=== PATIENT | male | born 1945 | race Caucasian/White ===

== ENCOUNTER → 2018-02-22 13:42 | Outpatient (CLI) | payer MEDICARE, SELFPAY ==
[2018-02-22 15:27] LABS: Absolute Lymphocyte Count 1.98 X10^3/ul (0.83-4.51); Absolute Neutrophil Count 1.6 X10^3/uL (2.0-7.7); Basophil# 0.06 X10^3/uL; Basophil% 1.4 % (0-1); Eosinophil# 0.11 X10^3/uL; Eosinophils% 2.5 % (0-5); Hematocrit 40.2 % (40-54); Hemoglobin 14.1 g/dl (13.0-16.5); Lymphocyte # 1.98 X10^3/ul (4.0); Lymphocyte % 44.6 % (19-41); Mean Corp Hgb Conc 35.1 g/gl (32-36); Mean Corpuscular Hgb 31.7 pg (27.0-32.0); Mean Corpuscular Volume 90.3 fL (80-94); Mean Platelet Vol. 9.8 fl (6.2-12.0); Monocyte# 0.68 X10^3/uL; Monocyte% 15.3 % (0-10); Neutrophil # 1.61 X10^3/uL (2.7-7.7); Neutrophil % 36.2 % (47-70); Platelet Count 275 K/mm3 (150-450); RBC Distribution Width CV 13.7 % (11.6-14.6); RBC Distribution Width SD 44.6 fl (35.1-43.9); Red Blood Count 4.45 M/mm3 (4.6-6.2); White Blood Count 4.4 K/mm3 (4.4-11.0)
[2018-02-22 15:29] LABS: POSITIVE COUNT NO; POSITIVE DIFFERENTIAL NO; POSITIVE MORPHOLOGY NO
[2018-02-22 15:37] LABS: Hemoglobin A1c 5.7 % (4.2-6.3)
[2018-02-22 15:54] LABS: ALB/GLOB Ratio 1.1 RATIO (0.9-2.4); AST(SGOT) 28 U/L (15-37); Alanine Aminotransfer ALT/SGPT 31 U/L (16-61); Albumin, Serum 3.7 g/dL (3.2-5.0); Alkaline Phosphatase 64 U/L (45-117); Anion Gap 8 (5-15); BUN 22 mg/dL (7-18); BUN/Creat Ratio 23.5 RATIO (10-20); Calcium,Total 8.6 mg/dL (8.5-10.1); Chloride 104 mmol/L (98-107); Cholesterol 256 mg/dL (200); Creatinine, Serum 0.94 mg/dL (0.70-1.30); EST Glomerular Filtration Rate 85 mL/min (>60); Est Glom Filt Rate - Afr Amer 102 mL/min (>60); Globulin 3.4 g/dL (2.2-4.2); Glucose 82 mg/dL (74-106); High Density Lipoprotein 41 mg/dL; PSA,Total - Annual Screen 0.76 ng/mL (0.00-4.00); Potassium 4.3 mmol/L (3.5-5.1); Protein, Total 7.1 g/dL (6.4-8.2); Sodium Level 141 mmol/L (136-145); Thyroid Stim Hormone (TSH) 0.88 uIU/mL (0.358-3.74); Triglycerides 481 mg/dL
[2018-02-23 09:39] LABS: Vitamin B12 497 pg/mL (211-911)
== END ==
PROVIDERS: Family Provider Family Medicine; PCP Family Medicine; Visit Provider Family Medicine
DX: Z00.01 Encounter for general adult medical examination with abnormal findings (principal); E78.5 Hyperlipidemia, unspecified; R73.01 Impaired fasting glucose; R53.83 Other fatigue; R41.3 Other amnesia; Z12.5 Encounter for screening for malignant neoplasm of prostate; Z72.0 Tobacco use
CPT/HCPCS: 36415; 80053; 80061; 82607; 83036; 84153; 84443; 85025; G0103

== ENCOUNTER 2018-04-17 11:00 | Inpatient (IN) | payer MEDICARE, SELFPAY ==
[2018-04-17 11:01] VITALS: BP 121/60; PULSE 117; RESP 18; TEMP 38.2; O2SAT 92; BMI 26.9
[2018-04-17 11:28] VITALS: BP 126/85; PULSE 115; RESP 29; O2SAT 93
[2018-04-17 11:39] LABS: Absolute Lymphocyte Count 0.42 X10^3/ul (0.83-4.51); Absolute Neutrophil Count 7.8 X10^3/uL (2.0-7.7); Basophil# 0.02 X10^3/uL; Basophil% 0.2 % (0-1); Hematocrit 41.2 % (40-54); Hemoglobin 14.8 g/dl (13.0-16.5); Lymphocyte # 0.42 X10^3/ul (4.0); Lymphocyte % 4.8 % (19-41); Mean Corp Hgb Conc 35.9 g/gl (32-36); Mean Corpuscular Hgb 32.4 pg (27.0-32.0); Mean Corpuscular Volume 90.2 fL (80-94); Mean Platelet Vol. 9.3 fl (6.2-12.0); Monocyte# 0.51 X10^3/uL; Monocyte% 5.8 % (0-10); Neutrophil # 7.76 X10^3/uL (2.7-7.7); Neutrophil % 89.1 % (47-70); Platelet Count 205 K/mm3 (150-450); RBC Distribution Width CV 13.8 % (11.6-14.6); RBC Distribution Width SD 45.3 fl (35.1-43.9); Red Blood Count 4.57 M/mm3 (4.6-6.2); White Blood Count 8.7 K/mm3 (4.4-11.0)
[2018-04-17 11:40] LABS: Differential Indicated SCAN CRITERIA MET; POSITIVE COUNT NO; POSITIVE DIFFERENTIAL YES; POSITIVE MORPHOLOGY NO
[2018-04-17 11:41] LABS: International Normalized Ratio 1.2; Prothrombin Time (Protime)PT. 14.9 SECONDS (11.7-14.9)
[2018-04-17 11:42] LABS: Partial Thromboplast Time 37.1 Seconds (24.1-36.2)
[2018-04-17 11:47] LABS: ALB/GLOB Ratio 0.9 RATIO (0.9-2.4); AST(SGOT) 22 U/L (15-37); Alanine Aminotransfer ALT/SGPT 27 U/L (16-61); Albumin, Serum 3.5 g/dL (3.2-5.0); Alkaline Phosphatase 76 U/L (45-117); Anion Gap 10 (5-15); BUN 18 mg/dL (7-18); BUN/Creat Ratio 15.4 RATIO (10-20); Calcium,Total 8.6 mg/dL (8.5-10.1); Chloride 102 mmol/L (98-107); Creatinine, Serum 1.17 mg/dL (0.70-1.30); EST Glomerular Filtration Rate 65 mL/min (>60); Est Glom Filt Rate - Afr Amer 79 mL/min (>60); Glucose 136 mg/dL (74-106); Potassium 3.5 mmol/L (3.5-5.1); Protein, Total 7.5 g/dL (6.4-8.2); Sodium Level 135 mmol/L (136-145)
[2018-04-17] MEDS: Acetaminophen 500 MG Tablet 1000 MG PO (11:47)
[2018-04-17] MEDS: 0.9% Normal Saline 1,000 ML 250 ML IV (11:48)
[2018-04-17 11:55] LABS: Mucous, Urine 0 SEEN /hpf (<or=2+); Red Blood Cells-Urine 0 SEEN /hpf (0-5)
[2018-04-17 11:57] LABS: Color, Urine Yellow (Yellow); Glucose, Dipstick Normal (Normal); Ketone-Dipstick 5 mg/dl (Negative); Leukocyte Esterase-Dipstick 100 /ul (Negative); Nitrite-Dipstick Positive (Negative); Occult Blood-Urine 250 /ul (Negative); Protein-Dipstick 100 mg/dl (Negative); Urine Bilirubin Dipstick Negative (Negative); Urine Clarity Clear (Clear); Urine Urobilinogen Normal (Normal)
[2018-04-17 11:57] LABS: Differential Comment SCANNED
--- NOTE | 2018-04-17 11:58 | ED.VISSUMM ---
- ER Visit Summary Date of Service: 04/17/18 Chief Complaint: Fever, confusion History of Present Illness: The patient is a 72 M who presents with fever, chills, and confusion that began yesterday and has been getting progressively worse. states the patient has been confused throughout the night. She states that he was walking around the house and was confused as to where he was at. states the patient was having subjective fevers and chills all day yesterday. Patient admits to some pain in his chest with coughing. Patient denies any sputum production. Patient does admit to some shortness of breath however. Patient denies any nausea or vomiting. Patient admits to some urinary frequency but states that he only urinates small amounts. Physical Examination: Vital signs are stable. Patient does have a temperature of 100.8. Patient is tachycardic at 117. Pulse oximeter is 92% on room air. Oral mucosa is pink and moist. Neck is supple. Trachea is midline. There is no JVD noted. Patient is awake, alert, and oriented to person and place. Cranial nerves II through XII are intact. There are no focal motor or sensory deficits noted. Heart was regular and tachycardic. Lungs are clear and equal bilateral. There is adequate respiratory effort noted. Abdomen is soft. Bowel sounds are normal. There is no tenderness noted. There is no rebound or guarding noted. The remaining physical exam is within normal limits. Test Results: Urinalysis showed evidence of a urinary tract infection. CBC and metabolic profile were within normal limits. CT scan of the brain was obtained and did not show any acute intracranial abnormality. EKG showed sinus tachycardia with a rate of 115. There are nonspecific ST-T wave changes noted. There are no prior EKGs available for comparison. Emergency Department Course and Treatment: Patient was started on Zosyn here. Case was discussed with Dr. Tenorio. He will admit the patient to his service. Disposition: Admit to hospital Impression: UTI, sepsis This note was generated with [employer] dictation software. It may contain incorrect words, spelling, and punctuation that were not noted in review of the chart prior to signing ED Disposition - Plan for ED Patient: Disposition: Acute Care Hospital [facility] Chief Complaint: Confusion Diagnosis: Urinary tract infection, Sepsis Referrals: Sonny Cueva DO [Primary Care Provider] -
[2018-04-17 12:05] LABS: White Blood Cells 25-50 SEEN /hpf (0-5)
[2018-04-17 12:05] LABS: Lactic Acid 1.6 mmol/L (0.4-2.0)
[2018-04-17 12:06] LABS: Bacteria 2+ /hpf (None Seen); Squamous Epithelial Cells - UA 0-5 SEEN /hpf (0-5)
[2018-04-17 13:52] VITALS: BP 114/79; PULSE 84; RESP 16; O2SAT 93
[2018-04-17 14:40] VITALS: PULSE 82; RESP 18; O2SAT 95
--- NOTE | 2018-04-17 15:13 | PCM.HP.STD ---
Problem List (1) Metabolic encephalopathy Status: Acute (2) Urinary tract infection Status: Acute (3) Sepsis Status: Acute History of Present Illness Date of Admission: 04/17/18 Chief Complaint: confusion The patient is a 72 year old M resents with confusion. Patient noted that the patient was confused last night were he knew she was but did not work. They were in their house which they have lived in for some time. Patient had a similar episode when he had an ear infection years past. Patient presents to the emergency room and was found to have a urinary tract infection urinalysis. Other workup was unremarkable. Patient was ordered Zosyn. Patient denies ever having had a urinary tract infection before. Patient states that he did have some dysuria that began yesterday. He denies any nocturia or incomplete voiding. [] Past Medical History Medical History: Medical History (Last Updated 04/17/18 @ 15:15 by Colt Tenorio DO) Amputated toe of left foot Z89.422 1st toe Allergies No Known Allergies Allergy (Verified 12/05/15 15:03) Home Medications: Ambulatory Orders Medication Instructions Recorded NK [NK] 04/17/18 Surgical History: - Psychiatric History: No pertinent psych hx Lives: Spouse/ Significant Other Smoking Status: Current some day smoker - Occasional Tobacco Use: Cigars, Pipe Alcohol: Occasional Drugs: None - *Family History Paternal History Items: Stroke Review of Systems Constitutional: Reports: Chills, Fever. Denies: Anorexia Eyes: Denies: Blurred vision, Double vision HEENT: Reports: Nasal Congestion. Denies: Head Aches, Sinus Congestion, Sinus Drainage Cardiovascular: Denies: Chest Pain, Palpitations Respiratory: Denies: Cough, Shortness of breath at rest, Sputum production Gastrointestinal: Denies: Abdominal Pain, Nausea, Vomiting Genitourinary: Reports: Dysuria. Denies: Frequency, Incontinence, Nocturia Musculoskeletal: Denies: Joint Pain, Joint Tenderness Skin: Denies: Rash, Wounds Neurological: Reports: Confusion. Denies: Focal weakness, Numbness, Tingling Psychiatric: Denies: Anxiety, Depression Endocrine: Denies: Change in Body Habitus Hematologic/ Lymphatic: Denies: Easy Bruising, Easy Bleeding, Hx of blood clot Comment: All review of systems are negative except as mentioned in the history of present illness and the other review of systems. VTE Information - Inpt Only VTE Present on Admission: No VTE Mechan Device Prophylaxis: None VTE Pharm Prophylaxis ordered?: Yes Patient Problems: Active and Suspected Problems (Last Updated 04/17/18 @ 15:15 by Colt Tenorio DO) Urinary tract infection (Acute) Sepsis (Acute) Metabolic encephalopathy (Acute) - Physical Exam General: Alert, Oriented x3, Cooperative, No apparent distress, Well developed, Well nourished HEENT: Atraumatic, PERRLA, EOMI, Normocephalic Oral: Moist Mucosa, No Gingival or Mucosal Lesions/ Ulcerations Neck: No Nodes, Thyroid Normal Size and Texture Lungs: Clear to auscultation, Normal air movement, No rhonchi, No wheeze Cardiovascular: Regular rate, Regular Rhythm, Normal S1, Normal S2, No murmurs Abdomen: Bowel Sounds Present, Soft, Non Tender, Non-Distended, No Hepato-splenomegaly, - - Bladder not palpable Extremities: No edema, No Calf Tenderness Skin: No rashes, No breakdown Musculoskeletal: No Tenderness to Palpation of Joints or Extremities, No Muscle Wasting Neurological: Cranial nerves II-XII grossly intact, Neuro grossly intact, Motor Exam 5/5 strength throughout Psych/Mental Status: Normal Affect, Appropriate Vital Signs Temp Pulse Resp BP Pulse Ox 38.2 C H 82 18 114/79 95 04/17/18 11:01 04/17/18 14:40 04/17/18 14:40 04/17/18 13:52 04/17/18 14:40 Oxygen Flow Rate (L/min) 2 Oxygen Delivery Method Nasal Cannula Weight: 73.482 kg Body Mass Index (BMI) 26.9 Laboratory Tests Past 24 Hrs 04/17/18 04/17/18 04/17/18 11:23 11:23 11:23 WBC 8.7 RBC 4.57 L Hgb 14.8 Hct 41.2 MCV 90.2 MCH 32.4 H MCHC 35.9 RDW 13.8 RDW Differential 45.3 H Plt Count 205 MPV 9.3 Immature Gran % (Auto) 0.100 Neut % (Auto) 89.1 H Lymph % (Auto) 4.8 L [place] % (Auto) 5.8 Eos % (Auto) 0.0 Baso % (Auto) 0.2 Absolute Neuts (auto) 7.8 H Absolute Lymphs (auto) 0.42 L Total Counted Not Reportable Differential Comment SCANNED PT 14.9 INR 1.2 APTT 37.1 H Sodium 135 L Potassium 3.5 Chloride 102 Carbon Dioxide 23.0 Anion Gap 10 BUN 18 Creatinine 1.17 Estim Creat Clear Calc 51.10 Est GFR (MDRD) Af Amer 79 Est GFR (MDRD) Non-Af 65 BUN/Creatinine Ratio 15.4 Glucose 136 H Lactic Acid Calcium 8.6 Total Bilirubin 0.80 AST 22 ALT 27 Alkaline Phosphatase 76 Total Protein 7.5 Albumin 3.5 Globulin 4.0 Albumin/Globulin Ratio 0.9 Urine Color Urine Clarity Urine pH Ur Specific [place] Urine Protein Urine Glucose (UA) Urine Ketones Urine Occult Blood Urine Nitrite Urine Bilirubin Urine Urobilinogen Ur Leukocyte Esterase Urine RBC Urine WBC Ur Squamous Epith Cells Urine Bacteria Urine Mucus 04/17/18 04/17/18 11:23 11:50 WBC RBC Hgb Hct MCV MCH MCHC RDW RDW Differential Plt Count MPV Immature Gran % (Auto) Neut % (Auto) Lymph % (Auto) [place] % (Auto) Eos % (Auto) Baso % (Auto) Absolute Neuts (auto) Absolute Lymphs (auto) Total Counted Differential Comment PT INR APTT Sodium Potassium Chloride Carbon Dioxide Anion Gap BUN Creatinine Estim Creat Clear Calc Est GFR (MDRD) Af Amer Est GFR (MDRD) Non-Af BUN/Creatinine Ratio Glucose Lactic Acid 1.6 Calcium Total Bilirubin AST ALT Alkaline Phosphatase Total Protein Albumin Globulin Albumin/Globulin Ratio Urine Color Yellow Urine Clarity Clear Urine pH 5.0 Ur Specific [place] 1.020 Urine Protein 100 H Urine Glucose (UA) Normal Urine Ketones 5 H Urine Occult Blood 250 H Urine Nitrite Positive H Urine Bilirubin Negative Urine Urobilinogen Normal Ur Leukocyte Esterase 100 H Urine RBC 0 SEEN Urine WBC 25-50 SEEN Ur Squamous Epith Cells 0-5 SEEN Urine Bacteria 2+ Urine Mucus 0 SEEN EKG reviewed and showed normal sinus rhythm with no acute changes. Clinical Impression(s) from Imaging Studies Chest X-Ray 04/17/18 11:15 IMPRESSION: No acute findings Electronically Signed: Alok Lott DO at 11:51 EDT Tel , Service support , Brain CT 04/17/18 12:16 IMPRESSION: Chronic involutional changes of the brain. Electronically Signed: Alok Lott DO at 14:16 EDT Tel , Service support , Assessment/Plan All Active Problems (Last Updated 04/17/18 @ 15:15 by Colt Tenorio DO) Urinary tract infection (Acute) Sepsis (Acute) Metabolic encephalopathy (Acute) 1. Sepsis Present on admission Secondary to UTI Supportive management 2. UTI Patient denies every having had a urinary tract infection before Given the patient's lack of previous urinary tract infections I feel that ciprofloxacin would be appropriate at this time as concern for multidrug-resistant organisms is low Urine culture drawn. However the patient is looking very well on the I feel the patient could be discharged to complete a course of ciprofloxacin without waiting for the final culture results 3. Metabolic encephalopathy Secondary to sepsis and UTI Patient is normally high functioning at baseline and only alert and oriented ?3 I suspect this patient when he gets sick just gets profoundly ill that likely altered his sensorium temporarily. 4. DVT prophylaxis with Lovenox Case discussed with the patient's at bedside Code Visit Inpatient E&M: 16006 Init Hosp L3
[2018-04-17 15:54] VITALS: BMI 27.2
[2018-04-17 16:04] VITALS: BP 138/82; PULSE 77; RESP 20; TEMP 37.4; O2SAT 96
[2018-04-17] MEDS: Acetaminophen 325 MG Tablet 650 MG PO ×2 (16:14→22:30)
[2018-04-17] MEDS: 0.9% Normal Saline 1,000 ML 150 ML IV (16:16)
[2018-04-17 21:34] VITALS: BP 109/68; PULSE 79; RESP 18; TEMP 37.2; O2SAT 93
[2018-04-17] MEDS: Ciprofloxacin 400 MG/200 ML BAG 200 MG IV (21:44)
[2018-04-18 03:44] VITALS: BP 106/71; PULSE 73; RESP 18; TEMP 36.7; O2SAT 96
[2018-04-18] MEDS: Acetaminophen 325 MG Tablet 650 MG PO ×2 (04:45→15:53)
[2018-04-18 06:39] LABS: Absolute Neutrophil Count 6.2 X10^3/uL (2.0-7.7); Basophil# 0.01 X10^3/uL; Basophil% 0.1 % (0-1); Eosinophil# 0.06 X10^3/uL; Eosinophils% 0.8 % (0-5); Hematocrit 37.8 % (40-54); Hemoglobin 12.7 g/dl (13.0-16.5); Lymphocyte % 10.1 % (19-41); Mean Corp Hgb Conc 33.6 g/gl (32-36); Mean Corpuscular Hgb 30.8 pg (27.0-32.0); Mean Corpuscular Volume 91.5 fL (80-94); Mean Platelet Vol. 9.6 fl (6.2-12.0); Monocyte# 0.83 X10^3/uL; Monocyte% 10.5 % (0-10); Neutrophil # 6.23 X10^3/uL (2.7-7.7); Neutrophil % 78.4 % (47-70); Platelet Count 169 K/mm3 (150-450); RBC Distribution Width SD 47.3 fl (35.1-43.9); Red Blood Count 4.13 M/mm3 (4.6-6.2); White Blood Count 7.9 K/mm3 (4.4-11.0)
[2018-04-18 06:40] LABS: POSITIVE COUNT NO; POSITIVE DIFFERENTIAL NO; POSITIVE MORPHOLOGY NO
[2018-04-18 06:56] LABS: Anion Gap 8 (5-15); BUN 16 mg/dL (7-18); BUN/Creat Ratio 16.1 RATIO (10-20); Calcium,Total 8.1 mg/dL (8.5-10.1); Chloride 108 mmol/L (98-107); Creatinine, Serum 0.99 mg/dL (0.70-1.30); EST Glomerular Filtration Rate 79 mL/min (>60); Est Glom Filt Rate - Afr Amer 96 mL/min (>60); Estimated Creatinine Clearance 62.65 ml/min; Glucose 111 mg/dL (74-106); Potassium 3.6 mmol/L (3.5-5.1); Sodium Level 140 mmol/L (136-145)
[2018-04-18 09:30] VITALS: BP 104/60; PULSE 65; RESP 16; TEMP 36.9; O2SAT 99
[2018-04-18] MEDS: 0.9% NaCl Peripheral Flush Adult/Peds IV (09:38)
[2018-04-18] MEDS: Ciprofloxacin 400 MG/200 ML BAG 200 MG IV ×2 (09:38→21:24)
[2018-04-18] MEDS: Enoxaparin 40 MG/0.4 ML Syringe SC (09:43)
--- NOTE | 2018-04-18 10:25 | PCM.PN.HOSP ---
Patient Problems: Active and Suspected Problems (Last Updated 04/17/18 @ 15:15 by Colt Tenorio DO) Urinary tract infection (Acute) Sepsis (Acute) Metabolic encephalopathy (Acute) Subjective: Patient seen and examined. He was admitted on 04/17/2018 with a complaint of altered mental status. He was found to have a UTI. Urinalysis in the ED. He was admitted and is being managed for UTI and is on IV Zosyn. Patient seen and examined. He had no complaints and felt well. Temperature settled overnight and was in the 90s Fahrenheit. He denied any fever or chills, any cough or chest pain, shortness of breath, any dysuria, any abdominal pain, any diarrhea vomiting. Review of systems otherwise negative. Labs and vitals reviewed. Patient is concerned about going home today as he does not want to be a burden to his . He says he was able to ambulate very well while she was at home on account of his sickness and confusion. He was to get much better before he goes on. 12 point Review of systems otherwise negative. Labs and vitals reviewed. Vitals/I&O's: Vital Signs Temp Pulse Resp BP Pulse Ox 98.1 F 73 18 106/71 96 04/18/18 03:44 04/18/18 03:44 04/18/18 03:44 04/18/18 03:44 04/18/18 03:44 Oxygen Delivery Method Room Air Weight: 168 lb 10.458 oz Body Mass Index (BMI) 27.2 Intake and Output for Last 24 Hours 04/16/18 04/17/18 04/18/18 23:59 23:59 23:59 Intake Total 311 / 311 1415 / 1415 Output Total 925 / 925 Balance 311 / 311 490 / 490 General: Alert, Oriented x3, Cooperative, No apparent distress HEENT: Atraumatic, PERRLA, EOMI, Normocephalic Oral: Moist Mucosa Neck: Supple, No JVD, Negative Carotid Bruits Lungs: Clear to auscultation, Normal air movement, No rhonchi, No wheeze, No rales Cardiovascular: Regular rate, Regular Rhythm, Normal S1, Normal S2, No murmurs Abdomen: Bowel Sounds Present, Soft, Non Tender, Non-Distended, No Hepato-splenomegaly Extremities: No clubbing, No cyanosis, No edema, Capillary Refill Less than 3 Seconds Skin: No rashes, No breakdown Musculoskeletal: No Tenderness to Palpation of Joints or Extremities Lymphatic: No Cervical, Supraclavicular, or Inguinal Adenopathy Neurological: Cranial nerves II-XII grossly intact, Motor Exam 5/5 strength throughout Psych/Mental Status: Normal Affect, Appropriate, Alert and oriented to time, place, person, mood and affect Laboratory Results 04/18/18 05:19: WBC 7.9, RBC 4.13 L, Hgb 12.7 L, Hct 37.8 L, MCV 91.5, MCH 30.8, MCHC 33.6, RDW 14.0, RDW Differential 47.3 H, Plt Count 169, MPV 9.6, Immature Gran % (Auto) 0.100, Neut % (Auto) 78.4 H, Lymph % (Auto) 10.1 L, [place] % (Auto) 10.5 H, Eos % (Auto) 0.8, Baso % (Auto) 0.1, Absolute Neuts (auto) 6.2, Absolute Lymphs (auto) 0.80 L, Total Counted Not Reportable 04/18/18 05:19: Sodium 140, Potassium 3.6, Chloride 108 H, Carbon Dioxide 24.0, Anion Gap 8, BUN 16, Creatinine 0.99, Estim Creat Clear Calc 62.65, Est GFR (MDRD) Af Amer 96, Est GFR (MDRD) Non-Af 79, BUN/Creatinine Ratio 16.1, Glucose 111 H, Calcium 8.1 L Current Medications Acetaminophen (Tylenol) 650 mg PO Q6H PRN PRN PRN Reason: Mild Pain (1-3)/Temp > 100.7 F Last Admin: 04/18/18 04:45 Dose: 650 mg Enoxaparin Sodium (Lovenox) 40 mg SC DAILY@1000 CLIF Last Admin: 04/18/18 09:43 Dose: 40 mg Ciprofloxacin (Cipro) 400 mg in 200 mls @ 200 mls/hr IV Q12 CLIF Last Admin: 04/18/18 09:38 Dose: 200 mls/hr Magnesium Hydroxide (Milk Of Magnesia) 30 ml PO DAILY PRN PRN PRN Reason: Constipation Ondansetron HCl (Zofran) 4 mg IV Q8H PRN PRN PRN Reason: NAUSEA Sodium Chloride () 5 - 30 ml IV UD PRN PRN Reason: SALINE FLUSH Last Admin: 04/18/18 09:38 Dose: 10 ml Medical Necessity - Tobacco Use Smoking Status: Current some day smoker Tobacco Use: Cigars, Pipe Assessment/Plan All Active Problems (Last Updated 04/17/18 @ 15:15 by Colt Tenorio DO) Urinary tract infection (Acute) Sepsis (Acute) Metabolic encephalopathy (Acute) 1. Sepsis due to UTI Had SIRS 3 out of 4 criteria on admission as he was febrile, tachycardic and tachypneic. Currently has SIRS criteria 0/4. On IV ciprofloxacin for UTI. Will continue for another 24 hours so he gets antibiotics for 48 hours. To urine and blood cultures. 2. Metabolic encephalopathy due to UTI resolving. Per discussion with patient's nurse, patient had some episodes of confusion. However at time of review, patient was alert and oriented ?3 and was able to communicate very well. This is likely due to the sepsis and UTI. Will monitor. 3. DVT prophylaxis: Lovenox Disposition: Likely DC home tomorrow. Code Visit Inpatient E&M: 86060 Subs Hosp L2
--- NOTE | 2018-04-18 13:27 | CASEMGMT ---
RN CM Assessment completed. See Link. DC Plan: Home Pt states he is independent, no DME. No DC conerns voiced. is able to assist if needed. Joyce CHINCHILLAN RN ACM
[2018-04-18 15:30] VITALS: BP 97/75; PULSE 84; RESP 18; TEMP 36.7; O2SAT 99
[2018-04-18 21:15] VITALS: BP 110/48; PULSE 69; RESP 18; TEMP 36.4; O2SAT 96
[2018-04-19] MEDS: Acetaminophen 325 MG Tablet 650 MG PO (01:57)
[2018-04-19 03:15] VITALS: BP 113/66; PULSE 73; RESP 18; TEMP 37; O2SAT 96
[2018-04-19 06:24] LABS: Absolute Lymphocyte Count 1.44 X10^3/ul (0.83-4.51); Absolute Neutrophil Count 3.5 X10^3/uL (2.0-7.7); Basophil# 0.03 X10^3/uL; Basophil% 0.5 % (0-1); Eosinophil# 0.22 X10^3/uL; Eosinophils% 3.8 % (0-5); Hematocrit 37.7 % (40-54); Hemoglobin 12.8 g/dl (13.0-16.5); Lymphocyte # 1.44 X10^3/ul (4.0); Lymphocyte % 25.2 % (19-41); Mean Corpuscular Hgb 30.8 pg (27.0-32.0); Mean Corpuscular Volume 90.8 fL (80-94); Mean Platelet Vol. 9.6 fl (6.2-12.0); Monocyte# 0.58 X10^3/uL; Monocyte% 10.1 % (0-10); Neutrophil # 3.45 X10^3/uL (2.7-7.7); Neutrophil % 60.4 % (47-70); Platelet Count 178 K/mm3 (150-450); RBC Distribution Width CV 13.8 % (11.6-14.6); RBC Distribution Width SD 45.8 fl (35.1-43.9); Red Blood Count 4.15 M/mm3 (4.6-6.2); White Blood Count 5.7 K/mm3 (4.4-11.0)
[2018-04-19 06:28] LABS: Differential Indicated SCAN CRITERIA MET; POSITIVE COUNT NO; POSITIVE DIFFERENTIAL NO; POSITIVE MORPHOLOGY YES
[2018-04-19 06:31] LABS: Anion Gap 11 (5-15); BUN 16 mg/dL (7-18); BUN/Creat Ratio 16.6 RATIO (10-20); Calcium,Total 8.5 mg/dL (8.5-10.1); Chloride 104 mmol/L (98-107); Creatinine, Serum 0.96 mg/dL (0.70-1.30); EST Glomerular Filtration Rate 82 mL/min (>60); Est Glom Filt Rate - Afr Amer 99 mL/min (>60); Estimated Creatinine Clearance 64.61 ml/min; Glucose 91 mg/dL (74-106); Potassium 3.6 mmol/L (3.5-5.1); Sodium Level 141 mmol/L (136-145)
[2018-04-19 09:15] VITALS: BP 115/64; PULSE 77; RESP 18; TEMP 36.5; O2SAT 96
[2018-04-19] MEDS: 0.9% NaCl Peripheral Flush Adult/Peds IV (09:25)
[2018-04-19] MEDS: Enoxaparin 40 MG/0.4 ML Syringe SC (09:25)
[2018-04-19] MEDS: Ciprofloxacin 400 MG/200 ML BAG 200 MG IV (09:26)
--- NOTE | 2018-04-19 10:06 | PCM.DC ---
- Discharge Diagnoses Current Active Problems: Current Active and Chronic Problems (Last Updated 04/17/18 @ 15:15 by Colt Tenorio DO) Urinary tract infection (Acute) Sepsis (Acute) Metabolic encephalopathy (Acute) You will use the following diet at home:: Cardiac Your food should be the consistency of: Regular Your liquids should be the consistency of: Regular/Thin Discharge Activity: Return to Normal Activity Call your doctor if you observe: Fever of 101 or Higher Instructions: Urinary Tract Infections in Men Allergies/Adverse Reactions: Allergies No Known Allergies Allergy (Verified 12/05/15 15:03) Medications to take at Discharge Ciprofloxacin [Cipro] 500 mg PO BID #6 tab 04/19/18 The following prescriptions were given: Ciprofloxacin [Cipro] 500 mg PO BID #6 tab Primary Care Physician: Sonny Cueva DO [Primary Care Provider] - Please follow up with your Primary Care Physician in: 1-2 weeks Test Results: Test results from this visit will be discussed in further detail at your follow-up appointment, if applicable.
--- NOTE | 2018-04-19 10:07 | PCM.DC.SUM ---
Discharge Date and Diagnosis - Problem List Patient Problems: Active and Suspected Problems (Last Updated 04/17/18 @ 15:15 by Colt Tenorio DO) Urinary tract infection (Acute) Sepsis (Acute) Metabolic encephalopathy (Acute) Date of Admission: 04/17/18 Date of Discharge: 04/19/18 - Primary Discharge Diagnosis Active and Suspected Problems (Last Updated 04/17/18 @ 15:15 by Colt Tenorio DO) Urinary tract infection (Acute) Sepsis (Acute) Metabolic encephalopathy (Acute) Hospital Course and Treatment Imaging Results: Laboratory Tests 04/17/18 04/17/18 04/17/18 11:23 11:23 11:23 WBC 8.7 RBC 4.57 L Hgb 14.8 Hct 41.2 MCV 90.2 MCH 32.4 H MCHC 35.9 RDW 13.8 RDW Differential 45.3 H Plt Count 205 MPV 9.3 Immature Gran % (Auto) 0.100 Neut % (Auto) 89.1 H Lymph % (Auto) 4.8 L [place] % (Auto) 5.8 Eos % (Auto) 0.0 Baso % (Auto) 0.2 Absolute Neuts (auto) 7.8 H Absolute Lymphs (auto) 0.42 L Total Counted Not Reportable Differential Comment SCANNED PT 14.9 INR 1.2 APTT 37.1 H Sodium 135 L Potassium 3.5 Chloride 102 Carbon Dioxide 23.0 Anion Gap 10 BUN 18 Creatinine 1.17 Estim Creat Clear Calc 51.10 Est GFR (MDRD) Af Amer 79 Est GFR (MDRD) Non-Af 65 BUN/Creatinine Ratio 15.4 Glucose 136 H Lactic Acid Calcium 8.6 Total Bilirubin 0.80 AST 22 ALT 27 Alkaline Phosphatase 76 Total Protein 7.5 Albumin 3.5 Globulin 4.0 Albumin/Globulin Ratio 0.9 Urine Color Urine Clarity Urine pH Ur Specific [place] Urine Protein Urine Glucose (UA) Urine Ketones Urine Occult Blood Urine Nitrite Urine Bilirubin Urine Urobilinogen Ur Leukocyte Esterase Urine RBC Urine WBC Ur Squamous Epith Cells Urine Bacteria Urine Mucus 04/17/18 04/17/18 04/18/18 11:23 11:50 05:19 WBC 7.9 RBC 4.13 L Hgb 12.7 L Hct 37.8 L MCV 91.5 MCH 30.8 MCHC 33.6 RDW 14.0 RDW Differential 47.3 H Plt Count 169 MPV 9.6 Immature Gran % (Auto) 0.100 Neut % (Auto) 78.4 H Lymph % (Auto) 10.1 L [place] % (Auto) 10.5 H Eos % (Auto) 0.8 Baso % (Auto) 0.1 Absolute Neuts (auto) 6.2 Absolute Lymphs (auto) 0.80 L Total Counted Not Reportable Differential Comment PT INR APTT Sodium Potassium Chloride Carbon Dioxide Anion Gap BUN Creatinine Estim Creat Clear Calc Est GFR (MDRD) Af Amer Est GFR (MDRD) Non-Af BUN/Creatinine Ratio Glucose Lactic Acid 1.6 Calcium Total Bilirubin AST ALT Alkaline Phosphatase Total Protein Albumin Globulin Albumin/Globulin Ratio Urine Color Yellow Urine Clarity Clear Urine pH 5.0 Ur Specific [place] 1.020 Urine Protein 100 H Urine Glucose (UA) Normal Urine Ketones 5 H Urine Occult Blood 250 H Urine Nitrite Positive H Urine Bilirubin Negative Urine Urobilinogen Normal Ur Leukocyte Esterase 100 H Urine RBC 0 SEEN Urine WBC 25-50 SEEN Ur Squamous Epith Cells 0-5 SEEN Urine Bacteria 2+ Urine Mucus 0 SEEN 04/18/18 04/19/18 04/19/18 05:19 05:45 05:45 WBC 5.7 RBC 4.15 L Hgb 12.8 L Hct 37.7 L MCV 90.8 MCH 30.8 MCHC 34.0 RDW 13.8 RDW Differential 45.8 H Plt Count 178 MPV 9.6 Immature Gran % (Auto) 0.000 Neut % (Auto) 60.4 Lymph % (Auto) 25.2 [place] % (Auto) 10.1 H Eos % (Auto) 3.8 Baso % (Auto) 0.5 Absolute Neuts (auto) 3.5 Absolute Lymphs (auto) 1.44 Total Counted Not Reportable Differential Comment PT INR APTT Sodium 140 141 Potassium 3.6 3.6 Chloride 108 H 104 Carbon Dioxide 24.0 26.0 Anion Gap 8 11 BUN 16 16 Creatinine 0.99 0.96 Estim Creat Clear Calc 62.65 64.61 Est GFR (MDRD) Af Amer 96 99 Est GFR (MDRD) Non-Af 79 82 BUN/Creatinine Ratio 16.1 16.6 Glucose 111 H 91 Lactic Acid Calcium 8.1 L 8.5 Total Bilirubin AST ALT Alkaline Phosphatase Total Protein Albumin Globulin Albumin/Globulin Ratio Urine Color Urine Clarity Urine pH Ur Specific [place] Urine Protein Urine Glucose (UA) Urine Ketones Urine Occult Blood Urine Nitrite Urine Bilirubin Urine Urobilinogen Ur Leukocyte Esterase Urine RBC Urine WBC Ur Squamous Epith Cells Urine Bacteria Urine Mucus Diagnostic Data Chest X-Ray 04/17/18 11:15 IMPRESSION: No acute findings Electronically Signed: Alok Lott DO at 11:51 EDT Tel , Service support , Brain CT 04/17/18 12:16 IMPRESSION: Chronic involutional changes of the brain. Electronically Signed: Alok Lott DO at 14:16 EDT Tel , Service support , none Operations: None Procedures: None Summary of Care Provided: The patient is a 72 year old M was admitted with altered mental status which started 1 day before presentation. He was brought to the ED where labs showed that he had a urinary tract infection and was also noted to be febrile, tachycardic and tachypneic. He was admitted and managed for metabolic encephalopathy and sepsis due to UTI and started on IV Zosyn initially. This was however switched to IV ciprofloxacin. Urine culture E. coli. Patient improved significantly and fever, tachycardia and tachypnea resolved. He was discharged home on 04/19/2018 with a 3 day course of p.o. ciprofloxacin 500 mg twice daily. He is to follow-up with his primary care doctor in 1-2 weeks. Patient seen and examined prior to discharge. He had no complaints and felt very well. He denied any fever chills, any cough or chest pain, shortness of breath, abdominal pain, any diarrhea vomiting, and also denied any dysuria frequency. Review of systems is otherwise negative. Labs and vitals reviewed. Medications reviewed and reconciled. o/e: [] Vital Signs Height 5 ft 6 in Weight: 168 lb 10.458 oz Weight in Pounds 168.7 lbs Pulse Ox 96 Temperature 97.7 F Pulse Rate 77 Respiratory Rate 18 Blood Pressure 115/64 Blood Pressure Position Semi-Fowlers General: Alert, Oriented x3, Cooperative, No apparent distress HEENT: Atraumatic, PERRLA, EOMI, Normocephalic Oral: Moist Mucosa Neck: Supple, No JVD, Negative Carotid Bruits Lungs: Clear to auscultation, Normal air movement, No rhonchi, No wheeze, No rales Cardiovascular: Regular rate, Regular Rhythm, Normal S1, Normal S2, No murmurs Abdomen: Bowel Sounds Present, Soft, Non Tender, Non-Distended, No Hepato-splenomegaly Extremities: No clubbing, No cyanosis, No edema, Capillary Refill Less than 3 Seconds Skin: No rashes, No breakdown Musculoskeletal: No Tenderness to Palpation of Joints or Extremities Lymphatic: No Cervical, Supraclavicular, or Inguinal Adenopathy Neurological: Cranial nerves II-XII grossly intact, Motor Exam 5/5 strength throughout Psych/Mental Status: Normal Affect, Appropriate, Alert and oriented to time, place, person, mood and affect Plan as documented above. Discharge Diet: 2000 mg Sodium Diet Discharge Activity: Return to Normal Activity Call your doctor if you observe: Fever of 101 or Higher, - - frequency of urination, painful urination Home Medications: Medications to take at Discharge Ciprofloxacin [Cipro] 500 mg PO BID #6 tab 04/19/18 Following Prescrptions Were Given to Patient: Ciprofloxacin [Cipro] 500 mg PO BID #6 tab Primary Care Physician: Sonny Cueva DO [Primary Care Provider] - Please follow up with your Primary Care Physician in: 1-2 weeks Patient Instructions: Urinary Tract Infections in Men Disposition: Home Minutes spent on discharge:: 35 Patient Condition:: Stable Medical Necessity - Tobacco Use Smoking Status: Current some day smoker Tobacco Use: Cigars, Pipe Meaningful Use Info Meaningful Use Diagnoses (Choose all that apply): None applicable Code Visit Inpatient E&M: 72107 Disch Hosp
== END 2018-04-19 12:00 | disposition home or self-care (01) | DRG 871 ==
LOC: ED 15:22 → MS3 15:41
PROVIDERS: Emergency Provider Emergency Medicine; Family Provider Family Medicine; PCP Family Medicine; Visit Provider Student in an Organized Health Care Education/Training Program
DX: A41.9 Sepsis, unspecified organism (principal); G93.41 Metabolic encephalopathy; N39.0 Urinary tract infection, site not specified; B96.20 Unspecified Escherichia coli [E. coli] as the cause of diseases classified elsewhere
CPT/HCPCS: 36415; 70450; 71045; 80048; 80053; 81001; 83605; 85025; 85610; 85730; 87040; 87086; 87088; 87186; 93005; 99283; 99406; J7030; J7040; A4216; J0744

== ENCOUNTER → 2023-02-16 | Outpatient (CLI) | payer MEDICARE, SELFPAY ==
[2023-02-16 18:07] LABS: Absolute Lymphocyte Count 1.88 X10^3/uL (0.83-4.51); Basophil# 0.06 X10^3/uL; Eosinophil# 0.13 X10^3/uL; Eosinophils% 2.2 % (0-5); Hematocrit 41.7 % (40-54); Hemoglobin 14.1 g/dL (13.0-16.5); Lymphocyte # 1.88 X10^3/ul (0.83-4.51); Lymphocyte % 31.3 % (19-41); Mean Corp Hgb Conc 33.8 g/dL (32-36); Mean Corpuscular Hgb 31.3 pg (27.0-32.0); Mean Corpuscular Volume 92.5 fL (80-94); Mean Platelet Vol. 10.1 fl (6.2-12.0); Monocyte# 0.91 X10^3/uL; Monocyte% 15.1 % (0-10); NRBC Flagged by Analyzer 0 % (0-5); Neutrophil # 3.02 X10^3/uL (2.7-7.7); Neutrophil % 50.2 % (47-70); Platelet Count 281 K/mm3 (150-450); RBC Distribution Width CV 13.2 % (11.6-14.6); RBC Distribution Width SD 44.9 fl (35.1-43.9); Red Blood Count 4.51 M/mm3 (4.6-6.2)
[2023-02-16 18:48] LABS: AST(SGOT) 15 U/L (15-37); Alanine Aminotransfer ALT/SGPT 23 U/L (16-61); Albumin, Serum 3.6 g/dL (3.2-5.0); Alkaline Phosphatase 60 U/L (45-117); Anion Gap 7 (5-15); BUN 28 mg/dL (7-18); BUN/Creat Ratio 28.9 RATIO (10-20); Calcium,Total 8.9 mg/dL (8.5-10.1); Chloride 109 mmol/L (98-107); Creatinine, Serum 0.97 mg/dL (0.70-1.30); EST Glomerular Filtration Rate 80 mL/min (>60); Est Glom Filt Rate - Afr Amer 97 mL/min (>60); Globulin 3.5 g/dL (2.2-4.2); Glucose 91 mg/dL (74-106); PSA,Total - Annual Screen 1.05 ng/mL (0.00-4.00); Potassium 3.9 mmol/L (3.5-5.1); Protein, Total 7.1 g/dL (6.4-8.2); Sodium Level 139 mmol/L (136-145)
== END | disposition home or self-care (01) ==
LOC: BFHLAB 15:46
PROVIDERS: PCP Family Medicine; Referring Provider Family Medicine; Visit Provider Family Medicine
DX: R53.83 Other fatigue (principal); D64.9 Anemia, unspecified; Z12.5 Encounter for screening for malignant neoplasm of prostate
CPT/HCPCS: 36415; 80053; 84153; 85025; G0103

== ENCOUNTER → 2023-08-04 | Outpatient (CLI) | payer MEDICARE, SELFPAY ==
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
== END | disposition home or self-care (01) ==
PROVIDERS: PCP Family Medicine; Referring Provider Family Medicine; Visit Provider Family Medicine
DX: M54.50 Low back pain, unspecified (principal); M79.604 Pain in right leg
CPT/HCPCS: 72110